=== PATIENT | female | born 1965 | race Caucasian/White ===

== ENCOUNTER 2018-08-12 08:03 | Day surgery (SDC) | payer OTHER ==
[2018-08-08 11:12] VITALS: BMI 31.1
[2018-08-12] MEDS ORDERED: BUPIVACAINE HCL/PF 2.5 MG/ML - 30 ML VIAL IJ ONE (10:44)
[2018-08-12] MEDS ORDERED: KETOROLAC TROMETHAMINE 30 MG/1 ML VIAL ONE (10:48)
[2018-08-12] MEDS ORDERED: ceFAZolin SODIUM 1 GM VIAL ONE (10:48)
[2018-08-12] MEDS ORDERED: LIDOCAINE HCL 2% JELLY (5 ML/TUBE) ONE (10:48)
[2018-08-12] MEDS ORDERED: PROPOFOL 20 ML ONE (10:48)
[2018-08-12] MEDS ORDERED: MIDAZOLAM HCL 2 MG/2 ML SINGLE DOSE VIAL ONE (10:48)
[2018-08-12] MEDS ORDERED: LIDOCAINE HCL/PF 2% SDV 5ML VIAL ONE (10:48)
[2018-08-12] MEDS ORDERED: ONDANSETRON 4 MG/2 ML VIAL ONE (10:48)
[2018-08-12] MEDS ORDERED: DEXAMETHASONE SOD PHOSPHATE 4 MG/1 ML VIAL ONE (10:48)
[2018-08-12] MEDS ORDERED: BUPIVACAINE HCL/PF 0.25% (2.5MG/ML) 10 ML VIAL IJ ONE (11:45)
[2018-08-12 13:10] VITALS: TEMP 98
[2018-08-12 13:46] VITALS: BP 134/70; PULSE 79
[2018-08-12] MEDS ORDERED: ONDANSETRON 4 MG/2 ML VIAL IVPUSH PRN (14:51)
[2018-08-12] MEDS ORDERED: oxyCODONE HCL 5 MG TABLET PO PRN (14:51)
[2018-08-12] MEDS ORDERED: LACTATED RINGERS SOLUTION 1,000 ML IV SCH (15:00)
--- NOTE | 2018-08-14 13:41 | OP ---
DATE OF OPERATION: 08/12/2018 SURGEON: Cory Washington MD EDGER HAND: ZEKE Desai PREOPERATIVE DIAGNOSES: 1. Left knee medial and lateral meniscal tear. 2. Left knee cartilage injury. 3. Left knee synovitis. POSTOPERATIVE DIAGNOSES: 1. Left knee medial and lateral meniscal tear. 2. Left knee cartilage injury. 3. Left knee synovitis. PROCEDURE: 1. Left knee arthroscopy with partial meniscectomy, medial and lateral meniscus; CPT code 45914. 2. Left knee arthroscopy with chondroplasty and abrasionplasty; CPT code 81432. 3. Left knee arthroscopy with synovectomy; CPT code 26718. FINDINGS: 1. Medial meniscus body, central tear. 2. Lateral meniscus body, anterior horn tear. 3. Synovitis, patellofemoral unilateral notch area. 4. Diffuse, thickened scar tissue, anterior joint line. 5. Synovitis, thickened anteriorly. 6. Minimal grade 2 cartilage injury, central portion of patella, patellofemoral trochlea with anterior diffuse, thickened scar tissue and a small area of grade 4 changes, anterior patellofemoral trochlea. PROCEDURE: Informed consent was obtained. The patient came to the operating room, where the lower extremity was prepped and draped in a sterile fashion. A tourniquet was placed on the upper thigh, but not inflated. Using standard arthroscopic technique, a lateral incision and portal was made to allow for introduction of the camera into the suprapatellar bursa. This was then taken to the medial joint line, where under direct visualization, a medial incision and portal was made. Excessive synovium noted in the medial, lateral and patellofemoral and notch area was removed by an upbiter, shaver and Bovie cautery. This was found to bring in inflammatory tissue into the joint surface, a source of pain and dysfunction. Probing of the medial and lateral meniscus found tears, as described in the findings. These were removed with the upbiter and shaver and taken back to a stable rim. Grade 2 to 3 degenerative changes were treated with a chondroplasty, removing all flaking surfaces with low-setting Bovie along the periphery to prevent further flaking. Grade 4 changes, as noted, were treated with an abrasionplasty, creating a bleeding surface at the bone/cartilage interface. Aggressive debridement with shaver/david created bleeding surface. Micro fracture also done when indicated in findings. All areas of the knee were once again reexamined. The knee was then drained and a single suture was placed in all portals. A sterile dressing was placed and the patient was transferred to the recovery room without complication. The PA listed above was present and assisted at surgery. Their presence was absolutely medically necessary for the completion of the procedure. They helped hold the arthroscopy, pass instruments (and implants when indicated) and the procedure could not have been completed without their assistance. CORY WASHINGTON M.D. [id number]
--- NOTE | 2018-08-15 13:32 | PATH ---
Surgical Pathology Report Patient Name: ELISA ARGUETA [facility]. Rec. #: [id number] /Age/Gender: 1965 (Age: 53) / F Account: [id number] Location: [facility] Taken: 08/12/2018 Received: 08/12/2018 Reported: 08/15/2018 Physicians: Cory Cassidy M.D. Specimen(s) Received LEFT KNEE SHAVINGS Clinical History Left knee internal derangement Final Diagnosis KNEE, LEFT, ARTHROSCOPIC SHAVINGS: PREDOMINANTLY BLOOD CLOT WITH SCANT CARTILAGE AND FIBROADIPOSE TISSUE. Electronically Signed Mariam Paul M.D. Gross Description Received in formalin labeled "left knee shavings" is a 1.5 x 1.0 x 0.2 cm aggregate of murillo soft tissue fragments admixed with abundant blood clot. The formalin is filtered and the specimen is entirely submitted in one cassette. /08/12/201808/12/2018
== END 2018-08-12 13:46 | disposition home or self-care (01) ==
LOC: FASU 08:03
PROVIDERS: ATTEND Orthopaedic Surgery
PROC: 0SBD4ZZ Excision of Left Knee Joint, Percutaneous Endoscopic Approach (ICD-10-PCS; 2018-08-12)
PROC: 0SBD4ZZ Excision of Left Knee Joint, Percutaneous Endoscopic Approach (ICD-10-PCS; 2018-08-12)
PROC: 0SBD4ZZ Excision of Left Knee Joint, Percutaneous Endoscopic Approach (ICD-10-PCS; principal; 2018-08-12 11:33)
DX: S83.242A Other tear of medial meniscus, current injury, left knee, initial encounter (principal); S83.282A Other tear of lateral meniscus, current injury, left knee, initial encounter; S83.8X2A Sprain of other specified parts of left knee, initial encounter; M65.862 Other synovitis and tenosynovitis, left lower leg; X58.XXXA Exposure to other specified factors, initial encounter; Y93.9 Activity, unspecified; Y92.9 Unspecified place or not applicable
CPT/HCPCS: 88304-TC; 94760

== ENCOUNTER 2019-02-09 10:22 | Day surgery (SDC) | payer OTHER ==
[2019-02-06 15:53] VITALS: BMI 30.2
--- NOTE | 2019-02-09 07:28 | HP ---
History & Physical Update - History History: No Change - Physical Physical: No Change - Assessment Assessment: No Change - Plan Plan: No Change (H&P is located in her paper chart and will be scanned into [facility]. No new complaints or medications.)
[2019-02-09] MEDS ORDERED: oxyCODONE HCL 10 MG SUSTAINED ACTING TABLET PO STA (10:34)
[2019-02-09] MEDS ORDERED: CEFAZOLIN 2 GM in DEXTROSE 5%-WATER - 100 ML IVPB ONE (10:34)
[2019-02-09] MEDS ORDERED: GABAPENTIN 300 MG CAPSULE (FP) PO STA (10:34)
[2019-02-09] MEDS ORDERED: THROMBIN (RECOMBINANT) 5,000 UNIT VIAL TP ONE (11:21)
[2019-02-09] MEDS ORDERED: LIDOCAINE 1%/EPI 1:100000 (20 ML MULTI DOSE VIAL) ONE (11:21)
[2019-02-09] MEDS ORDERED: BUPIVACAINE HCL/PF (5 MG/ML) 30 ML VIAL IJ ONE (11:46)
[2019-02-09] MEDS ORDERED: MIDAZOLAM HCL 2 MG/2 ML SINGLE DOSE VIAL ONE (11:46)
[2019-02-09] MEDS ORDERED: DEXAMETHASONE SOD PHOSPHATE/PF 10 MG/ML SDV ONE (11:47)
[2019-02-09] MEDS ORDERED: HYDROmorphone HCL/PF 1 MG/ML AMP ONE (13:37)
[2019-02-09] MEDS ORDERED: DEXAMETHASONE SOD PHOSPHATE 4 MG/1 ML VIAL ONE ×2 (13:38→13:52)
[2019-02-09] MEDS ORDERED: ONDANSETRON 4 MG/2 ML VIAL ONE (13:38)
[2019-02-09] MEDS ORDERED: PROPOFOL 20 ML ONE ×4 (13:38→14:55)
[2019-02-09] MEDS ORDERED: SUCCINYLCHOLINE CHLORIDE 200 MG/10 ML VIAL ONE (13:38)
[2019-02-09] MEDS ORDERED: ceFAZolin SODIUM 1 GM VIAL ONE (13:52)
[2019-02-09] MEDS ORDERED: LIDOCAINE 1%/EPI 1:100000 (50 ML MULTI DOSE VIAL) INF ONE (14:02)
[2019-02-09] MEDS ORDERED: PHENYLEPHRINE HCL 10 MG/1 ML SINGLE DOSE VIAL ONE (14:11)
[2019-02-09] MEDS ORDERED: oxyCODONE HCL 5 MG TABLET PO PRN ×3 (14:41→15:23)
[2019-02-09] MEDS ORDERED: ONDANSETRON 4 MG/2 ML VIAL IVPUSH PRN ×2 (14:41→15:23)
[2019-02-09] MEDS ORDERED: LACTATED RINGERS SOLUTION 1,000 ML IV SCH ×2 (14:45→15:30)
--- NOTE | 2019-02-09 15:22 | OP ---
Operative Note - Note: Operative Date: 02/09/19 Pre-Operative Diagnosis: Cervical Stenosis (C5/6, C6/7) w/ UE radiculopathy Operation: Anterior Cervical Discectomy Fusion C5/6, C6/7; allograft implant x 2 ; Neuromonitoring Post-Operative Diagnosis: Same as Pre-op Surgeon: Star Kohler Drafter Commercial: Brian Collado Anesthesiologist/[employer] OPERATOR: Leia Jane Anesthesia: General Specimens Removed: C5/6, C6/7 discs Estimated Blood Loss (mls): 20 Fluid Volume Replaced (mls): 1,000 Operative Report Dictated: Yes
[2019-02-09] MEDS ORDERED: KETOROLAC TROMETHAMINE 30 MG/1 ML VIAL IVPUSH PRN (15:23)
--- NOTE | 2019-02-09 15:23 | SURG ---
Surgery Floor Inspector Note Floor Inspector: Brian Collado PA-C Date of Service: 02/09/19 Diagnosis: Cervical Stenosis (C5/6, C6/7) w/ UE radiculopathy Procedure: Anterior Cervical DIscectomy Fusion C5/6, C6/7; allograft implant x 2; Neuromonitoring I was present for the entirety of the operative procedure. For further detail, please refer to operative report. Visit type - Case Type Case Type: Scheduled - New patient This patient is new to me today: Yes Date on this admission: 02/09/19
[2019-02-09] MEDS ORDERED: ACETAMINOPHEN 325 MG TABLET (FP) PO PRN (15:28)
--- NOTE | 2019-02-09 16:00 | OP ---
DATE OF OPERATION: 02/09/2019 PREOPERATIVE DIAGNOSIS: Cervical stenosis, C5-6, C6-7. POSTOPERATIVE DIAGNOSIS: Cervical stenosis, C5-6, C6-7. PROCEDURE PERFORMED: 1. Anterior cervical diskectomy and fusion, C5-6. 2. Anterior cervical diskectomy and fusion, C6-7. 3. Placement of instrument, C5 to C7. SURGEON: Star Kohler MD HEAD MECHANIC: ZEKE Aguirre ESTIMATED BLOOD LOSS: 50 mL. INTRAVENOUS FLUIDS: Per Anesthesia. ANESTHESIA: General/MCP block. COMPLICATIONS: None. DISPOSITION: Patient brought to PACU in stable condition. INDICATION FOR SURGERY: Ms. Wood is a 53-year-old female who has been suffering from pain from her neck down her arms. X-rays and MRI were completed which noted that she had cervical stenosis from C5 to C7. She had gone through an exhaustive course of treatment for this, which included medications, physical therapy as well as injections. Unfortunately, her pain continued to persist despite all this. At this point, risks, benefits, and alternatives were discussed, and the patient consented to surgery. DESCRIPTION OF PROCEDURE: Patient was brought to the operating room by the anesthesia staff. After appropriate patient identification was performed, general anesthesia was given. An MCP block was also given. Patient was placed supine on the OR bed with her arms tucked in to the side. All areas of bony prominences were well padded at this time. Neuromonitoring leads were attached. A shoulder roll was placed underneath her shoulders to extend her neck to the point that she could tolerate in preoperative holding area. A needle was taped onto her neck to elisha off the C5-6 level. X-ray was taken to confirm this was correct. Needle was removed, and 10 mL of lidocaine with epinephrine were injected in her neck at this time. Her neck was prepped and draped in a sterile manner. At this point, timeout was completed. Two incisions were made in the left side of her neck. Dissection was carried down to the platysma. The platysma was cut in line with the skin incision. Next, the interval between the sternocleidomastoid and strap muscles was developed. Next, the interval between the carotid sheath and the tracheoesophagus was developed. Peanuts were used to elevate up the prevertebral fascia. Needle was placed into the C5-6 disk. X-ray was taken to confirm this was correct. Needle was removed, and the longus colli muscles were elevated off. Retractor blades were placed in. A [place] pin was placed into the body of C5 and C7. A knife was used to incise the disk and distraction was applied. At this point, the microscope was brought in. Using a series of pituitaries, Kerrisons, and curettes, a diskectomy was completed. The endplates were decorticated at this time. A cage filled with bone graft was placed in. A screw was placed into the body of C5, C6, and C7. [place] pin was removed. AP and lateral x-rays confirmed the instrumentation to be in good position. Final tightening was performed. The platysma was closed with 2-0 Vicryl suture. Skin was closed with 3-0 Monocryl suture. Dermabond was applied. Steri-Strips were applied. A sterile dressing was applied. Patient was placed supine on the OR bed, brought to the PACU in stable condition. Marion HAWK/[id number]
[2019-02-09] MEDS: LABETALOL HCL 5 MG/1 ML (100MG/20 ML VIAL) IVPUSH PRN ×2 (16:30→17:15)
[2019-02-09] MEDS ORDERED: GABAPENTIN 300 MG CAPSULE (FP) PO SCH (22:00)
[2019-02-09] MEDS: CEFAZOLIN 1 GM/D5W 1 GM/50 ML BAG IVPB SCH (22:04)
[2019-02-09] MEDS: ACETAMINOPHEN 325 MG TABLET (FP) PO SCH (22:05)
[2019-02-09] MEDS: diazePAM 2 MG TABLET PO SCH (22:05)
[2019-02-10] MEDS: ACETAMINOPHEN 325 MG TABLET (FP) PO SCH (06:17)
[2019-02-10] MEDS: CEFAZOLIN 1 GM/D5W 1 GM/50 ML BAG IVPB SCH (06:17)
[2019-02-10] MEDS: diazePAM 2 MG TABLET PO SCH (06:17)
[2019-02-10 06:20] VITALS: BP 155/67; PULSE 75; TEMP 97.6
[2019-02-10] MEDS ORDERED: amLODIPine BESYLATE 5 MG TABLET (FP) PO SCH (10:00)
--- NOTE | 2019-02-10 10:07 | PN ---
Progress Note (short form) - Note Progress Note: surgery POD#1 ACDF patient seen and examined at bedside. Patient states she had some pain over her left trapezius last night which has since improved. She is tolerating her diet and OOB to bathroom- voiding. She denies any CP/ SOB, Nausea , fever, chills or radicular symptoms in UE. Vital Signs Temp 97.6 F 02/10/19 06:00 Pulse 75 02/10/19 06:00 Resp 16 02/10/19 08:22 BP 155/67 02/10/19 06:00 Pulse Ox 99 02/10/19 08:22 Intake & Output 02/09/19 02/09/19 02/10/19 11:59 23:59 11:59 Intake Total 1300 1225 Output Total 470 Balance 830 1225 Weight 165 lb Intake: IV 1000 475 Lactated Ringers Solution 475 1,000 ml @ 125 mls/hr IV ASDIR RICHARD Rx#: [id number] IVPB 50 50 Oral 250 700 Output: Urine 450 Void 450 Estimated Blood Loss 20 Other: Voiding Method Toilet Toilet # Unmeasured Voids Void 2 Height 5 ft 2 in Body Mass Index (BMI) 30.2 Weight Measurement Method Standing Scale PE: A&Ox3, NAD Unlabored rep on RA incision c/d/i with surrounding tissue intact and no evidence of tracking erythema, edema or d/c. Trachea midline. 5/5 on B/L UE air bag builder and shoulder shrug. sensation to light touch grossly intact throughout. B/L LE compartments soft, supple and NT with +2 DP pulse X-Ray C spine: with hardware in place at operative levels. <Mariam Garrett - Last Filed: 02/10/19 10:08> - Note Progress Note: Patient seen and examined Agree with above D/C Planning <Star Kohler - Last Filed: 02/13/19 15:21> Problem List - Problems (1) S/P cervical spinal fusion Assessment/Plan: POD #1 doing well with post op vomiting resolved. 1) OOB as tolerated 2) Encourage IS 3) c-collar 4) d/c home today Evaluation and plan discussed with Dr Kohler Code(s): Z98.1 - ARTHRODESIS STATUS <Mariam Garrett - Last Filed: 02/10/19 10:08>
--- NOTE | 2019-02-13 17:41 | PATH ---
Surgical Pathology Report Patient Name: ELISA ARGUETA Med. Rec. #: [id number] /Age/Gender: 1965 (Age: 53) / F Account: [id number] Location: [facility] Taken: 02/09/2019 Received: 02/09/2019 Reported: 02/13/2019 Physicians: Star Kohler M.D. Specimen(s) Received CERVICAL DISC C5-C7 Clinical History Cervical stenosis Final Diagnosis CERVICAL DISC, C5-C7, ANTERIOR CERVICAL DISCECTOMY WITH FUSION: BENIGN INTERVERTEBRAL DISC TISSUE AND BONE. Electronically Signed Glenny Cates M.D. Gross Description Received in formalin labeled "C5-C7 cervical disc," is a 2.5 x 2.0 x 0.3 cm aggregate of murillo fragments of fibrocartilaginous tissue. A field service representative portion is submitted in one cassette. /02/10/2019 saudi02/10/2019
== END 2019-02-10 11:02 | disposition home or self-care (01) ==
LOC: FASU 10:22 → FASUSAT 10:22 → FM/S 18:09 → FASUSAT 02-10 11:02
PROVIDERS: ATTEND Orthopaedic Surgery Orthopaedic Surgery of the Spine
PROC: 0RG10A0 Fusion of Cervical Vertebral Joint with Interbody Fusion Device, Anterior Approach, Anterior Column, Open Approach (ICD-10-PCS; 2019-02-09)
PROC: 0RG10K0 Fusion of Cervical Vertebral Joint with Nonautologous Tissue Substitute, Anterior Approach, Anterior Column, Open Approach (ICD-10-PCS; 2019-02-09)
PROC: 0RB30ZZ Excision of Cervical Vertebral Disc, Open Approach (ICD-10-PCS; principal; 2019-02-09 14:13)
DX: M48.02 Spinal stenosis, cervical region (principal)
CPT/HCPCS: 22551; 22552; 22845; 22853; C1889; 72050-TC-FY; 88304-TC; 94760